=== PATIENT | female | born 1975 | race Caucasian/White ===

== ENCOUNTER 2020-04-26 15:49 | Emergency (ER) | payer OTHER ==
[~2020-04-26] VITALS: Ht 165.1 cm; Wt 93.1 kg
[~2020-04-26 15:49] MED LIST: ACETTAB3 OR; AMITRIPTYLIN10 MG PO; ATIVAN0.5 MG PO; AUGMENTIN875 MG OR; BACTRIM1 TAB OR; BUPROPION150 M1 PO; COMPAZINE10 MG OR; DEXAMETHASON2 MG PO; EMEND125 MG OR; FLEXERIL OR; HYDROCHLOROT12.5 M1 PO; LEVAQUIN750 MG PO; LORATADINE10 M1 PO; LORTAB 5 OR; LORTAB 5/3255 MG PO; LORTAB 7.5 PO; LOSARTAN POT50 MG PO; NAPROSYN500 MG OR; NO; NO HOME MEDS; NORCO1 TA1 PO; PAROXETINE20 MG PO; PATADAY OU; PERCOCET 5/325M1 TAB PO; PRAVACHOL20 MG PO; PRAVASTATIN20 MG PO; PREMARIN0.3 MG PO; PREMARIN0.625 MG PO; PRILOSEC40 MG PO; PROVENTIL HFA IN; ULTRAM50 M1 OR; ULTRAM50 M1 PO; VICODIN1 TAB PO; VITAMIN D32000 UNIT PO; XANAX0.5 MG PO; ZANTAC 150 PO; ZOFRAN ODT4 MG OR; ZOFRAN ODT8 MG PO; ZOFRAN8 MG OR; ZOLPIDEM5 MG PO
[2020-04-26 16:37] LABS: HEMOGLOBIN 13.3 g/dl (12.0-16.0); IMMATURE GRANULOCYTES 0.1 % (0.0-5.0); MEAN CELL VOLUME 89.4 fL CALC (80.0-100.0); MEAN CORPUSCULAR HGB 28.1 pG CALC (26.0-32.0); MEAN CORPUSCULAR HGB CONC 31.4 g/dL CAL (32.0-36.0); NEUT# 3.8 thou/uL (2.00-7.15); RED BLOOD COUNT 4.73 mill/uL (4.20-5.60); RED CELL DISTRI WIDTH 12.6 % (11.5-15.5)
[2020-04-26 16:38] LABS: HEMATOCRIT 42.3 % (37.0-47.0)
[2020-04-26 16:50] LABS: ALKALINE PHOSPHATASE 113 u/l (38-126); ANION GAP 12 (6-22 (CALC)); BILIRUBIN, TOTAL 0.4 mg/dL (0.0-1.4); BUN 17 mg/dL (7-17); BUN/CREATININE RATIO 21 (12-20 (CALC)); CARBON DIOXIDE 27 mmol/l (22-30); CHLORIDE 104 mmol/l (95-108); CREATININE 0.8 mg/dL (0.5-1.0); GFR > 60 ML/MIN (>=60 (CALC)); GFR FOR AFR.AMER. > 60 ML/MIN (>=60 (CALC)); LIPASE 158 u/l (23-300); POTASSIUM 3.8 mmol/l (3.5-5.1); SGOT/AST 32 u/l (14-36); SODIUM 139 mmol/l (137-146); TOTAL PROTEIN 7.9 g/dL (6.3-8.2)
[2020-04-26 16:54] LABS: ALBUMIN 4.6 g/dL (3.2-5.0)
[2020-04-26 17:30] VITALS: BP 128/79
== END 2020-04-26 17:30 | disposition home or self-care (01) ==
LOC: ED 15:49
PROVIDERS: Family Medicine
DX: K43.9 Ventral hernia without obstruction or gangrene (principal)

== ENCOUNTER 2020-08-23 11:50 | Observation (INO) | payer OTHER ==
[~2020-08-23] VITALS: Ht 165.1 cm; Wt 96.2 kg
[2020-08-23 14:03] LABS: HEMATOCRIT 46.3 % (37.0-47.0); HEMOGLOBIN 14.9 g/dl (12.0-16.0); IMMATURE GRANULOCYTES 0.3 % (0.0-5.0); MEAN CELL VOLUME 89.6 fL CALC (80.0-100.0); MEAN CORPUSCULAR HGB 28.8 pG CALC (26.0-32.0); MEAN CORPUSCULAR HGB CONC 32.2 g/dL CAL (32.0-36.0); NEUT# 4.25 thou/uL (2.00-7.15); RED BLOOD COUNT 5.17 mill/uL (4.20-5.60); RED CELL DISTRI WIDTH 12.3 % (11.5-15.5)
[2020-08-23 14:18] LABS: ALBUMIN 4.9 g/dL (3.2-5.0); ALKALINE PHOSPHATASE 110 u/l (38-126); ANION GAP 15 (6-22 (CALC)); BILIRUBIN, TOTAL 0.5 mg/dL (0.0-1.4); BUN 16 mg/dL (7-17); BUN/CREATININE RATIO 25 (12-20 (CALC)); CARBON DIOXIDE 27 mmol/l (22-30); CHLORIDE 101 mmol/l (95-108); CREATININE 0.6 mg/dL (0.5-1.0); GFR > 60 ML/MIN (>=60 (CALC)); GFR FOR AFR.AMER. > 60 ML/MIN (>=60 (CALC)); POTASSIUM 4.1 mmol/l (3.5-5.1); SGOT/AST 39 u/l (14-36); SODIUM 140 mmol/l (137-146); TOTAL PROTEIN 8.4 g/dL (6.3-8.2)
[2020-08-23 16:10] VITALS: BP 127/89
[2020-08-23 19:00] VITALS: BP 122/76
[2020-08-23 22:59] LABS: URINE BILIRUBIN - DIPSTICK NEGATIVE (NEGATIVE); URINE BLOOD DIPSTICK NEGATIVE (NEGATIVE); URINE COLOR YELLOW; URINE GLUCOSE - DIPSTICK NEGATIVE (NEGATIVE); URINE KETONE NEGATIVE (NEGATIVE); URINE LEUK ESTERASE NEGATIVE (NEGATIVE); URINE NITRITE - DIPSTICK NEGATIVE (Negative); URINE PROTEIN - DIPSTICK NEGATIVE (NEG-TRACE); URINE SPECIFIC GRAVITY 1.015; URINE UROBILINOGEN - DIPSTICK 0.2 E.U./dL (0.2)
[2020-08-24] VITALS (9 sets, daily range): BP systolic 111–133; BP diastolic 65–85
[2020-08-24 05:42] LABS: IMMATURE GRANULOCYTES 0.3 % (0.0-5.0); MEAN CELL VOLUME 90.3 fL CALC (80.0-100.0); MEAN CORPUSCULAR HGB 28.8 pG CALC (26.0-32.0); MEAN CORPUSCULAR HGB CONC 31.9 g/dL CAL (32.0-36.0); NEUT# 2.72 thou/uL (2.00-7.15); RED BLOOD COUNT 4.34 mill/uL (4.20-5.60); RED CELL DISTRI WIDTH 12.2 % (11.5-15.5)
[2020-08-24 05:51] LABS: HEMATOCRIT 39.2 % (37.0-47.0); HEMOGLOBIN 12.5 g/dl (12.0-16.0)
[2020-08-24 06:07] LABS: ANION GAP 13 (6-22 (CALC)); BUN 13 mg/dL (7-17); BUN/CREATININE RATIO 19 (12-20 (CALC)); CARBON DIOXIDE 23 mmol/l (22-30); CHLORIDE 106 mmol/l (95-108); CREATININE 0.7 mg/dL (0.5-1.0); GFR > 60 ML/MIN (>=60 (CALC)); GFR FOR AFR.AMER. > 60 ML/MIN (>=60 (CALC)); POTASSIUM 4.2 mmol/l (3.5-5.1); SODIUM 138 mmol/l (137-146)
[2020-08-24] MEDS ORDERED: AUGMENTIN500TAB PO (13:33)
[2020-08-24] MEDS ORDERED: PERCOCET 5/325M1 TAB PO (13:34)
== END 2020-08-24 17:00 | disposition home or self-care (01) ==
LOC: ED 11:50 → ED-I 13:29 → ED 14:16 → MS2 14:17
PROVIDERS: Family Medicine; ADMIT Surgery; ATTEND Surgery
DX: K43.0 Incisional hernia with obstruction, without gangrene (principal); I10 Essential (primary) hypertension; J45.909 Unspecified asthma, uncomplicated; K21.9 Gastro-esophageal reflux disease without esophagitis; M79.7 Fibromyalgia; Z85.89 Personal history of malignant neoplasm of other organs and systems; Z20.828 Contact with and (suspected) exposure to other viral communicable diseases
CPT/HCPCS: G0378; J0131; J2710

== ENCOUNTER 2023-01-23 09:40 | Day surgery (SDC) | payer OTHER ==
[~2023-01-23] VITALS: Ht 165.1 cm; Wt 90.7 kg
[~2023-01-23 09:40] MED LIST changes: +AUGMENTIN500TAB PO; +ESTRADIOL1 MG PO; +FISH OIL1 CAP PO; +TOPIRAMATE50 MG PO; +VENTOLIN HFA108 MCG PO
[2023-01-23] MEDS ORDERED: PERCOCET 5/321 COMBO PO (11:54)
[2023-01-23 13:23] VITALS: BP 123/78
== END 2023-01-23 13:07 | disposition home or self-care (01) ==
LOC: ORM 09:40
PROVIDERS: ATTEND Surgery
DX: K43.2 Incisional hernia without obstruction or gangrene (principal); I10 Essential (primary) hypertension; K21.9 Gastro-esophageal reflux disease without esophagitis; M79.7 Fibromyalgia
CPT/HCPCS: J0131; J0690